=== PATIENT | female | born 1995 | race Native Hawaiian/Other Pacific Islander ===

== ENCOUNTER 2017-05-06 18:10 | Emergency (ER) | payer OTHER ==
[~2017-05-06] VITALS: Ht 162.6 cm; Wt 93.0 kg
[2017-05-06 19:52] LABS: PLATELET COUNT 301 K/uL (152-353)
[2017-05-06 19:59] LABS: POTASSIUM 3.7 mmol/L (3.6-5.2); SODIUM 136 mmol/L (136-145)
[2017-05-06 22:50] VITALS: BP 136/81; TEMP 98.7
== END 2017-05-06 22:56 | disposition home or self-care (01) ==
LOC: ED 18:10
PROVIDERS: Specialist
DX: O23.41 Unspecified infection of urinary tract in pregnancy, first trimester (principal)
CPT/HCPCS: 36415; 80048; 81000; 84702; 85027; 87088; 96361; 96365; 99284; J0690

== ENCOUNTER 2019-11-18 07:23 | Outpatient (CLI) | payer OTHER | END 2019-11-18 20:38 | disposition home or self-care (01) | LOC: LABW 07:23 | DX: Z34.83 Encounter for supervision of other normal pregnancy, third trimester (principal) | CPT/HCPCS: 36415; 86592; 87535; G0432 ==